=== PATIENT | female | born 1985 | race Hispanic/Latino ===

== ENCOUNTER 2019-02-25 23:18 | Inpatient (IN) | payer OTHER ==
[~2019-02-25] VITALS: Ht 160 cm; Wt 76.5 kg
[2019-02-25] MEDS ORDERED: KETOROLAC TROMETHAMINE 30MG/ML ONE (23:34)
[2019-02-25] MEDS ORDERED: SODIUM CHLORIDE 0.9% 1000ML 1,000 ML IV ONE (23:35)
[2019-02-25] MEDS ORDERED: HYDROCODONE/ACETAMINOPHEN 5/325 MG TAB ONE (23:35)
[2019-02-25 23:39] LABS: BILIRUBIN,URINE Negative (NEGATIVE); COLOR,URINE Yellow (YELLOW); GLUCOSE, URINE (UA) Negative (NEGATIVE); KETONES,URINE Negative (NEGATIVE); LEUKOCYTE ESTERASE ,URINE Trace (NEGATIVE); NITRATE,URINE Negative (NEGATIVE); OCCULT BLOOD,URINE Negative (NEGATIVE); PH,URINE 5.5 (5.0-8.0); PROTEIN,URINE Negative (NEGATIVE)
[2019-02-25 23:41] LABS: HCG,QUAL RESULT NEGATIVE (NEGATIVE)
[2019-02-25 23:42] LABS: APPEARANCE,URINE CLEAR (CLEAR)
[2019-02-25 23:46] LABS: BASOPHILS % (AUTO) 0.3 % (0.0-5.0); HEMATOCRIT 37.2 % (36-48); LYMPHOCYTES % (AUTO) 28.5 % (21.0-51.0); MEAN CORPUSCULAR HEMOGLOBIN 29.1 pg (27.0-33.0); MEAN CORPUSCULAR HGB CONC 33.6 g/dL (32.0-36.0); MEAN CORPUSCULAR VOLUME 86.7 fL (79-99); MONOCYTES % (AUTO) 5.9 % (3.0-13.0); NEUTROPHILS % (AUTO) 64.3 % (40.0-77.0); PLATELET COUNT (AUTO) 322 K/uL (130-400); RED BLOOD CELL COUNT(AUTO) 4.29 MIL/uL (4.00-5.50); WHITE BLOOD COUNT (AUTO) 10.9 K/uL (4.8-10.8)
[2019-02-25 23:55] LABS: CREATININE 0.8 mg/dL (0.5-1.5); POTASSIUM 3.5 mmol/L (3.5-5.1)
[2019-02-25 23:59] LABS: ALBUMIN 4.3 g/dL (3.5-5.0); BILIRUBIN,TOTAL 0.8 mg/dL (0.2-1.0); TOTAL PROTEIN, SERUM 8.1 g/dL (6.0-8.3)
[2019-02-26] VITALS (25 sets, daily range): BP systolic 119–155; BP diastolic 51–91
[2019-02-26 00:01] LABS: BACTERIA,URINE Few /HPF (None Seen)
[2019-02-26 00:02] LABS: MUCUS,URINE Rare LPF (None Seen)
[2019-02-26] MEDS ORDERED: PROCHLORPERAZINE EDISYLATE 10 MG/2 ML VIAL ONE (00:12)
[2019-02-26] MEDS ORDERED: DiphenhydrAMINE HCL 50 MG/ML VIAL ONE (00:12)
[2019-02-26] MEDS ORDERED: ZOSYN 3.375GM+NS 50ML 50 ML IV ONE (01:26)
[2019-02-26] MEDS ORDERED: ONDANSETRON HCL 4 MG/2 ML VIAL IVP PRN (02:15)
[2019-02-26] MEDS: LACTATED RINGERS 1000ML 1,000 ML IV SCH ×5 (02:15→19:50)
[2019-02-26] MEDS ORDERED: MORPHINE SULFATE 4 MG/1ML SYG IV PRN (02:15)
[2019-02-26 04:24] LABS: HEMATOCRIT 34.6 % (36-48); MEAN CORPUSCULAR HEMOGLOBIN 29.2 pg (27.0-33.0); MEAN CORPUSCULAR HGB CONC 33.5 g/dL (32.0-36.0); MEAN CORPUSCULAR VOLUME 87.1 fL (79-99); PLATELET COUNT (AUTO) 284 K/uL (130-400); RED BLOOD CELL COUNT(AUTO) 3.98 MIL/uL (4.00-5.50); RED CELL DISTRIBUTION WIDTH 14.9 % (11.0-15.5); WHITE BLOOD COUNT (AUTO) 11.6 K/uL (4.8-10.8)
[2019-02-26 04:45] LABS: ALBUMIN 3.5 g/dL (3.5-5.0); CREATININE 0.8 mg/dL (0.5-1.5); POTASSIUM 4.3 mmol/L (3.5-5.1); TOTAL PROTEIN, SERUM 6.6 g/dL (6.0-8.3)
[2019-02-26] MEDS ORDERED: LIDOCAINE PF 2% 5ML ABBOJECT ONE (08:55)
[2019-02-26] MEDS ORDERED: MIDAZOLAM HCL 1 MG/ML 2ML VIAL ONE (08:55)
[2019-02-26] MEDS ORDERED: DEXAMETHASONE SOD PHOSPHATE 10MG/ML 1ML VIAL ONE ×2 (08:55→08:58)
[2019-02-26] MEDS ORDERED: PROPOFOL 10 MG/ML 20ML VIAL IV ONE (08:55)
[2019-02-26] MEDS ORDERED: SUCCINYLCHOLINE 200MG/10ML SYR ONE (08:55)
[2019-02-26] MEDS ORDERED: GLYCOPYRROLATE 1 MG/5 ML SYRINGE ONE (08:55)
[2019-02-26] MEDS ORDERED: NEOSTIGMINE 5MG/5ML SYR IV ONE (08:56)
[2019-02-26] MEDS ORDERED: FENTANYL CITRATE PF 50 MCG/1 ML 2ML VIAL ONE ×2 (08:56→11:25)
[2019-02-26] MEDS ORDERED: ONDANSETRON HCL 4 MG/2 ML VIAL ONE (08:56)
[2019-02-26] MEDS ORDERED: ROCURONIUM 10MG/1ML SYR 10 MG/ML ML ONE (09:02)
--- NOTE | 2019-02-26 09:40 | NUR ---
prn zofran given at 0849 with morphine to prevent nausea from morphine, pt denies nause at this time
--- NOTE | 2019-02-26 09:50 | NUR ---
surgery here to take pt downstairs to pre-op holding; pt has just finished taking chg shower and she is in bed having checklist completed. pt received morphine at 0849 so pt's sister is signing permit for her; pt does give her sister permission to be signing consent; pt family instructed to wait in main lobby to her from dr Mayorga after surgery; all of pt's and family questions answered at this time and they have stated understanding of all answers.
[2019-02-26] MEDS: ZOSYN 3.375GM+NS 50ML 50 ML IV SCH ×2 (10:01→17:56)
[2019-02-26] MEDS ORDERED: HEPARIN SODIUM 1000UNIT/ML 10ML VIAL ONE (11:08)
--- NOTE | 2019-02-26 12:54 | NUR ---
received pt post op lap choly; pt aaox3, stating she needs to void, bandaides x4 to abdoman cdi w/ scant serosanginous drainage, pt rating pain as mild at this time; family at bedside; i have gone over post op orders for activity, pain , stay overnight etc with patient and family and they stated understanding of all orders; pt assisted to the bathroom, minimal assistance required she ambulated easily independently; will cont to monitor.
--- NOTE | 2019-02-26 16:00 | NUR ---
enrico maciel to abdoman cdi Addendum: 02/26/19 at 1806 by KELLY PEARSON RN RN Amended: Links added.
[2019-02-26] MEDS: ACETAMINOPHEN-CODEINE 300/30MG TAB PO PRN ×2 (17:55→23:41)
[2019-02-27] MEDS: ZOSYN 3.375GM+NS 50ML 50 ML IV SCH ×3 (02:04→18:00)
[2019-02-27 03:43] VITALS: BP 124/73
[2019-02-27] MEDS: LACTATED RINGERS 1000ML 1,000 ML IV SCH (06:40)
[2019-02-27 07:49] VITALS: BP 112/78
--- NOTE | 2019-02-27 11:00 | NUR ---
INITIAL CM NOTE MET Rebecca PT, INDP, AAOX3, EMPLOYED STATES NO INSURANCE AVAILABLE AT HER JOB AT [employer], USED TO HAVE INSURANCE AT [employer]. S/P JEREMIAH POP, [employer] GFIVEN AND EXPLAINED, INCLUIDNG HOW TO GET IN AT [facility] TODAY Addendum: 02/27/19 at 1825 by LARY FOSTER RN CM Amended: Links added.
[2019-02-27 11:04] VITALS: BP 158/76
[2019-02-27] MEDS ORDERED: ACET1TAB12 PO (13:08)
== END 2019-02-27 18:12 | disposition home or self-care (01) | DRG 419 ==
LOC: EDH 23:18 → EDHIP 23:19 → 4BH 02-26 01:24
PROVIDERS: ADMIT Surgery; ATTEND Surgery
PROC: 0FT44ZZ Resection of Gallbladder, Percutaneous Endoscopic Approach (ICD-10-PCS; principal; 2019-02-26 10:13)
DX: K80.00 Calculus of gallbladder with acute cholecystitis without obstruction (principal)
CPT/HCPCS: 36415; 76705; 80053; 81001; 81025; 83690; 85025; 85027; G0378; J0330; J0780; J1100; J1200; J1644; J1885; J2001; J2250; J2270; J2405; J2543; J2704; J2710; J3010; J3490; J7030; J7120